=== PATIENT | female | born 1955 | race Caucasian/White ===

== ENCOUNTER 2021-02-12 16:26 | Outpatient (CLI) | payer MEDICARE, OTHER | END 2021-02-12 16:27 | disposition home or self-care (01) | LOC: CSHRAD 16:26 | PROVIDERS: ATTEND Internal Medicine | DX: M54.5 Low back pain (principal); M41.86 Other forms of scoliosis, lumbar region | CPT/HCPCS: 72100 ==

== ENCOUNTER 2021-09-12 12:27 | Outpatient (CLI) | payer MEDICARE | END 2021-09-12 12:28 | disposition home or self-care (01) | LOC: CSHMAMMO 12:27 | PROVIDERS: ATTEND Internal Medicine | DX: Z12.31 Encounter for screening mammogram for malignant neoplasm of breast (principal) | CPT/HCPCS: 77063; 77067 ==

== ENCOUNTER 2021-09-26 13:45 | Outpatient (CLI) | payer MEDICARE | END 2021-09-26 13:46 | disposition home or self-care (01) | LOC: CSHCT 13:45 | PROVIDERS: ATTEND Internal Medicine | DX: Z12.2 Encounter for screening for malignant neoplasm of respiratory organs (principal); F17.210 Nicotine dependence, cigarettes, uncomplicated; R93.89 Abnormal findings on diagnostic imaging of other specified body structures; J43.2 Centrilobular emphysema | CPT/HCPCS: 71271 ==

== ENCOUNTER 2021-11-29 13:38 | Outpatient (CLI) | payer MEDICARE | END 2021-11-29 13:39 | disposition home or self-care (01) | LOC: CSHULT 13:38 | PROVIDERS: ATTEND Internal Medicine | DX: R01.1 Cardiac murmur, unspecified (principal); I34.0 Nonrheumatic mitral (valve) insufficiency; I07.1 Rheumatic tricuspid insufficiency | CPT/HCPCS: 93306 ==

== ENCOUNTER 2023-01-31 12:33 | Outpatient (CLI) | payer MEDICARE | END 2023-01-31 12:34 | disposition home or self-care (01) | LOC: CSHMAMMO 12:33 | PROVIDERS: ATTEND Internal Medicine | DX: Z12.31 Encounter for screening mammogram for malignant neoplasm of breast (principal) | CPT/HCPCS: 77063; 77067 ==

== ENCOUNTER 2023-01-31 13:31 | Outpatient (CLI) | payer MEDICARE | END 2023-01-31 13:32 | disposition home or self-care (01) | LOC: CSHCT 13:31 | PROVIDERS: ATTEND Internal Medicine | DX: Z12.2 Encounter for screening for malignant neoplasm of respiratory organs (principal); F17.210 Nicotine dependence, cigarettes, uncomplicated | CPT/HCPCS: 71271 ==

== ENCOUNTER 2023-02-13 14:03 | Outpatient (CLI) | payer MEDICARE | END 2023-02-13 14:04 | disposition home or self-care (01) | LOC: CSHCP 14:03 | PROVIDERS: ATTEND Internal Medicine | DX: J44.1 Chronic obstructive pulmonary disease with (acute) exacerbation (principal) | CPT/HCPCS: 94060; 94726; 94729; 94760 ==

== ENCOUNTER 2023-03-24 08:47 | Day surgery (SDC) | payer MEDICARE ==
[2023-03-20 13:29] VITALS: BMI 26.5
[2023-03-24] MEDS ORDERED: PROPOFOL 40 ML ONE (11:01)
[2023-03-24] MEDS ORDERED: ePHEDrine Sulfate 50 MG/10 ML VIAL ONE (11:09)
== END 2023-03-24 12:20 | disposition home or self-care (01) ==
LOC: CSHSDC 08:47
PROVIDERS: ATTEND Internal Medicine Gastroenterology
PROC: 0DB38ZX Excision of Lower Esophagus, Via Natural or Artificial Opening Endoscopic, Diagnostic (ICD-10-PCS; principal; 2023-03-24)
PROC: 0DJD8ZZ Inspection of Lower Intestinal Tract, Via Natural or Artificial Opening Endoscopic (ICD-10-PCS; 2023-03-24)
DX: K64.9 Unspecified hemorrhoids (principal); K63.5 Polyp of colon; K22.70 Barrett's esophagus without dysplasia; K21.9 Gastro-esophageal reflux disease without esophagitis; K52.9 Noninfective gastroenteritis and colitis, unspecified; J44.9 Chronic obstructive pulmonary disease, unspecified; M19.90 Unspecified osteoarthritis, unspecified site; F41.9 Anxiety disorder, unspecified; G56.00 Carpal tunnel syndrome, unspecified upper limb; Z98.84 Bariatric surgery status; Z86.010 Personal history of colon polyps; Z88.1 Allergy status to other antibiotic agents; Z79.899 Other long term (current) drug therapy
CPT/HCPCS: 43239; G0105; 88305; J2704

== ENCOUNTER 2024-09-03 14:01 | Outpatient (CLI) | payer MEDICARE | END 2024-09-03 14:02 | disposition home or self-care (01) | LOC: CSHMAMMO 14:01 | PROVIDERS: ATTEND Nurse Practitioner | DX: Z78.0 Asymptomatic menopausal state (principal); M85.851 Other specified disorders of bone density and structure, right thigh; M85.852 Other specified disorders of bone density and structure, left thigh | CPT/HCPCS: 77080 ==